=== PATIENT | female | born 1990 | race Two or more races ===

== ENCOUNTER 2020-01-24 10:34 | Emergency (ER) | payer OTHER ==
[~2020-01-24] VITALS: Ht 167.6 cm; Wt 79.4 kg
[2020-01-24 11:32] VITALS: BP 118/47
[2020-01-24 11:37] LABS: Basophils # (auto) 0 10 ^3/uL (0-0.2); Basophils % (auto) 0.6 % (0.0-2.0); Eosinophils # (auto) 0.2 10 ^3/uL (0-0.8); Eosinophils % (auto) 2.4 % (0.0-7.0); Hematocrit 38.6 % (36.0-46.0); Lymphocytes # (auto) 1.8 10 ^3/uL (0.4-5.4); Lymphocytes % (auto) 23.9 % (10.0-50.0); Mean Corpuscular Hemoglobin 28.5 pg (28.0-32.0); Mean Corpuscular Hgb Conc. 33.8 g/dL (32.0-36.0); Mean Corpuscular Volume 84.3 fL (80.0-100.0); Monocytes # (auto) 0.6 10 ^3/uL (0-1.3); Monocytes % (auto) 7.8 % (0.0-12.0); Neutrophils % (auto) 65.3 % (37.0-80.0); Nucleated Red Blood Cells % 0.1 %; Platelet Count (auto) 291 10^3/uL (140-450); Red Blood Cells 4.58 10^6/uL (4.0-5.20); Red Cell Distribution Width 14.2 % (11.8-14.3); White Blood Cell 7.7 10^3/uL (4.4-10.8)
== END 2020-01-24 13:38 | disposition home or self-care (01) ==
LOC: ER 10:34
DX: O20.0 Threatened abortion (principal)
CPT/HCPCS: 36415; 76801; 76817; 84702; 85025

== ENCOUNTER 2025-05-06 15:34 | Emergency (ER) | payer OTHER ==
[~2025-05-06] VITALS: Ht 167.6 cm; Wt 76.9 kg
[2025-05-06 15:55] VITALS: PULSE 68; RESP 16; O2SAT 98
--- NOTE | 2025-05-06 16:03 | ED.PDOC ---
HPI (NEURO) HPI Comments This is a 34-year-old female with past medical history of anxiety came to the hospital due to blurry vision for 1 hour. Per patient, she 1st developed flushing light, subsequently developed blurry vision. She also reports of headache, right hand numbness, nausea, constipation and dizziness. She denies fever, chest pain, shortness of breath, or any motor deficits. During the physical examination the patient was sudden crying. On 4:00 p.m., patient has blurry vision had improved but still complaining of headache. Chief Complaint: Headache Time Seen by MD: 15:37 Reviewed Notes: Nurses Notes Information Source: Patient Mode of Arrival: Ambulatory Past Medical History PAST MEDICAL HISTORY: Denies Surgical History: Denies all surgeries PAGEANT DIRECTOR History: No Pertinent PAGEANT DIRECTOR History Family History Family History: Family hx of HTN Family History (Other): Anxiety Social History Smoker: Non-Smoker Alcohol: Denies ETOH Use Drugs: Denies Drug Use Lives In: Home Physical Exam General Appearance: No Apparent Distress, Normal HEENT: Normal ENT Inspection, Pharynx Normal, TMs Normal Neck: Full Range of Motion, Non-Tender, Normal, Normal Inspection Respiratory: Chest Non-Tender, Lungs Clear, No Accessory Muscle Use, No Respiratory Distress, Normal Breath Sounds Cardiovascular: No Edema, No JVD, No Murmur, No Gallop, Normal Peripheral Pulses, Regular Rate/Rhythm Breast Exam: Deferred Gastrointestinal: No Organomegaly, Non Tender, No Pulsatile Mass, Normal Bowel Sounds, Soft Genitalia: Deferred Pelvic: Deferred Rectal: Deferred Extremities: No calf tenderness, Normal capillary refill, Normal inspection, Normal range of motion, Non-tender, No pedal edema Musculoskeletal : Apperance: Normal Neurologic: Alert, assistant pastry chef II-XII nml as Tested, No Motor Deficits, Normal Affect, Normal Mood, No Sensory Deficits Cerebellar Function: Normal Reflexes: Normal Skin: Dry, Normal Color, Warm Lymphatic: No Adenopathy Was a procedure done? Was a procedure done?: No X-Ray, Labs, Meds, VS Vital Signs Date Time Temp Pulse Resp B/P (MAP) Pulse Ox O2 Delivery O2 Flow Rate FiO2 05/06/25 17:30 65 16 99/52 (68) 97 05/06/25 15:55 98.3 68 16 97/64 (75) 95 98.3 05/06/25 15:55 68 16 98 Room Air* 0 21 05/06/25 15:36 98.3 80 16 127/73 95 98.3 Lab Test 05/06/25 16:05 Range/Units White Blood Count 8.3 4.4-10.8 10^3/uL Red Blood Count 4.36 4.0-5.20 10^6/uL Hemoglobin 11.9 L 12.2-16.2 g/dL Hematocrit 36.0 36.0-46.0 % Mean Corpuscular Volume 82.7 80.0-100.0 fL Mean Corpuscular Hemoglobin 27.4 L 28.0-32.0 pg Mean Corpuscular Hemoglobin Concent 33.1 32.0-36.0 g/dL Red Cell Distribution Width 14.5 H 11.8-14.3 % Platelet Count 294 140-450 10^3/uL Mean Platelet Volume 7.5 6.9-10.8 fL Neutrophils (%) (Auto) 65.2 37.0-80.0 % Lymphocytes (%) (Auto) 26.1 10.0-50.0 % Monocytes (%) (Auto) 5.7 0.0-12.0 % Eosinophils (%) (Auto) 2.1 0.0-7.0 % Basophils (%) (Auto) 0.9 0.0-2.0 % Neutrophils # (Auto) 5.4 1.6-8.6 10 ^3/uL Lymphocytes # (Auto) 2.2 0.4-5.4 10 ^3/uL Monocytes # (Auto) 0.5 0-1.3 10 ^3/uL Eosinophils # (Auto) 0.2 0-0.8 10 ^3/uL Basophils # (Auto) 0.1 0-0.2 10 ^3/uL Nucleated Red Blood Cells 0.1 % Sodium Level 140 136-145 mmol/L Potassium Level 3.6 3.5-5.1 mmol/L Chloride Level 107 98-107 mmol/L Carbon Dioxide Level 25 20-31 mmol/L Anion Gap 8 5-15 Blood Urea Nitrogen 9 9-23 mg/dL Creatinine 0.71 0.550-1.02 mg/dL Glomerular Filtration Rate Calc 115 >90 mL/min BUN/Creatinine Ratio 12.7 10.0-20.0 Serum Glucose 87 74-106 mg/dL Calcium Level 8.2 L 8.7-10.4 mg/dL Total Bilirubin 0.2 0.2-1.0 mg/dL Aspartate Amino Transferase (AST) 27 13-40 U/L Alanine Aminotransferase (ALT) 23 7-40 U/L Alkaline Phosphatase 49 46-116 U/L Total Protein 5.7 5.7-8.2 g/dL Albumin 3.5 3.2-4.8 g/dL Plasma/Serum Blood Alcohol < 3.0 <10 mg/dL Current Medications Medications (Trade) Dose Ordered Sig/Chuy Route Start Time Stop Time Status Last Admin Acetaminophen (Tylenol Tablet) 650 mg ONCE ONCE PO 05/06/25 16:00 05/06/25 16:23 DC 05/06/25 16:37 Time of 1ST Reevaluation: 18:40 Reevaluation 1ST: Improved Patient Education/Counseling: Diagnosis, Treatment, Prognosis, Need For Follow Up Family Education/Counseling: No Family Present Comments Patient came to the hospital due to blurry vision. Patient was vitally stable. Patient was also complaining of mild headache. Patient was given acetaminophen. CBC, and CMP checked, within normal limits. On subsequent stable, patient was feeling better. Patient is seen, blurry vision had improved. Patient was discharged home, recommended to follow up with the PCP. Departure 1 Departure Time of Disposition: 18:41 Impression: Primary Impression: Anxiety attack Disposition: 01 HOME / SELF CARE / HOMELESS Condition: Fair Critical Care Note Critical Care Time?: Yes (45 min-critical care time only) Stability Stability form required: No Heart Score Heart Score: Heart Score Response (Comments) Value History N/A 0 EKG N/A 0 Age N/A 0 Risk Factors N/A 0 Troponin N/A 0 Total 0 KAILYN CORDON RESDIENT May 06, 2025 16:03
[2025-05-06 16:14] LABS: Hematocrit 36.0 % (36.0-46.0); Hemoglobin 11.9 g/dL (12.2-16.2); Mean Corpuscular Hemoglobin 27.4 pg (28.0-32.0); Mean Corpuscular Volume 82.7 fL (80.0-100.0); Nucleated Red Blood Cells % 0.1 %
[2025-05-06 16:31] LABS: Alanine Aminotransferase 23 U/L (7-40); Albumin 3.5 g/dL (3.2-4.8); Alkaline Phosphatase 49 U/L (46-116); Anion Gap 8 (5-15); BUN/Creatinine Ratio 12.7 (10.0-20.0); Carbon Dioxide 25 mmol/L (20-31); Chloride 107 mmol/L (98-107); Glucose 87 mg/dL (74-106); Potassium 3.6 mmol/L (3.5-5.1); Sodium 140 mmol/L (136-145); Total Protein 5.7 g/dL (5.7-8.2)
[2025-05-06 16:33] LABS: Bilirubin, Total 0.2 mg/dL (0.2-1.0); Blood Urea Nitrogen 9 mg/dL (9-23); Calcium 8.2 mg/dL (8.7-10.4)
[2025-05-06] MEDS: ACETAMINOPHEN 325 MG TAB PO ONE (16:37)
[2025-05-06 19:55] VITALS: BP 105/50; PULSE 65; RESP 18; TEMP 98.1; O2SAT 95
== END 2025-05-06 19:55 | disposition home or self-care (01) ==
LOC: ER 15:34
DX: F41.0 Panic disorder [episodic paroxysmal anxiety] (principal)
CPT/HCPCS: 36415; 80053; 80320; 85025